=== PATIENT | female | born 1975 | race African-American/Black ===

== ENCOUNTER → 2019-08-10 15:46 | Outpatient (CLI) | payer BC, SELFPAY ==
[2019-08-10 17:09] LABS: Absolute Lymphocyte Count 1.94 X10^3/uL (0.83-4.51); Absolute Neutrophil Count 4.1 X10^3/uL (2.0-7.7); Basophil# 0.06 X10^3/uL; Basophil% 0.9 % (0-1); Eosinophil# 0.14 X10^3/uL; Hematocrit 25.7 % (37-47); Hemoglobin 7.2 g/dL (12.0-15.0); Lymphocyte # 1.94 X10^3/ul (4.0); Lymphocyte % 27.7 % (19-41); Mean Corpuscular Volume 64.3 fL (81-99); Mean Platelet Vol. 9.4 fl (6.2-12.0); Monocyte# 0.72 X10^3/uL; Monocyte% 10.3 % (0-10); NRBC Flagged by Analyzer 0 % (0-5); Neutrophil # 4.12 X10^3/uL (2.7-7.7); Neutrophil % 58.8 % (47-70); Platelet Count 455 K/mm3 (150-450); RBC Distribution Width CV 18.4 % (11.6-14.6); RBC Distribution Width SD 42.3 fl (35.1-43.9)
[2019-08-10 17:31] LABS: ALB/GLOB Ratio 0.9 RATIO (0.9-2.4); AST(SGOT) 16 U/L (15-37); Alanine Aminotransfer ALT/SGPT 20 U/L (13-56); Albumin, Serum 3.6 g/dL (3.2-5.0); Alkaline Phosphatase 81 U/L (45-117); Anion Gap 6 (5-15); BUN 7 mg/dL (7-18); BUN/Creat Ratio 7.8 RATIO (10-20); Calcium,Total 8.8 mg/dL (8.5-10.1); Chloride 109 mmol/L (98-107); EST Glomerular Filtration Rate 73 mL/min (>60); Est Glom Filt Rate - Afr Amer 89 mL/min (>60); Ferritin 3 ng/mL (8-252); Globulin 3.9 g/dL (2.2-4.2); Glucose 92 mg/dL (74-106); Potassium 3.7 mmol/L (3.5-5.1); Protein, Total 7.5 g/dL (6.4-8.2); Sodium Level 140 mmol/L (136-145); Thyroid Stim Hormone (TSH) 0.85 uIU/mL (0.358-3.74)
== END ==
PROVIDERS: PCP Family Medicine; Visit Provider Family Medicine
DX: R53.83 Other fatigue (principal)
CPT/HCPCS: 36415; 80053; 82728; 84443; 85025

== ENCOUNTER → 2019-09-09 15:21 | Outpatient (CLI) | payer BC, SELFPAY ==
[2019-09-09 17:22] LABS: Absolute Lymphocyte Count 1.94 X10^3/uL (0.83-4.51); Absolute Neutrophil Count 3.9 X10^3/uL (2.0-7.7); Basophil# 0.06 X10^3/uL; Basophil% 0.9 % (0-1); Eosinophil# 0.13 X10^3/uL; Hematocrit 32.9 % (37-47); Hemoglobin 9.5 g/dL (12.0-15.0); Lymphocyte # 1.94 X10^3/ul (4.0); Lymphocyte % 29.4 % (19-41); Mean Corp Hgb Conc 28.9 g/dL (32-36); Mean Corpuscular Hgb 21.3 pg (27.0-32.0); Mean Corpuscular Volume 73.6 fL (81-99); Mean Platelet Vol. 9.9 fl (6.2-12.0); Monocyte% 9.1 % (0-10); NRBC Flagged by Analyzer 0 % (0-5); Neutrophil # 3.85 X10^3/uL (2.7-7.7); Neutrophil % 58.3 % (47-70); POSITIVE MORPHOLOGY YES; Platelet Count 496 K/mm3 (150-450); Red Blood Count 4.47 M/mm3 (4.2-5.4); White Blood Count 6.6 K/mm3 (4.4-11.0)
[2019-09-09 17:51] LABS: Ferritin 50 ng/mL (8-252)
[2019-09-09 18:41] LABS: Differential Indicated SCAN CRITERIA MET
[2019-09-09 19:29] LABS: Acanthocytes RARE; Anisocytosis 2+; Hypochromasia 2+; Ovalocyte 1+; Platelet Estimate SLT INC (ADEQ); Target Cells RARE
[2019-09-13 09:48] LABS: Pathologist Review Reviewed
== END ==
PROVIDERS: PCP Family Medicine; Referring Provider Family Medicine; Visit Provider Family Medicine
DX: D50.9 Iron deficiency anemia, unspecified (principal)
CPT/HCPCS: 36415; 82728; 85025

== ENCOUNTER → 2019-12-21 13:44 | Outpatient (CLI) | payer BC, SELFPAY ==
[2019-12-21 13:12] VITALS: BMI 27.1
[2019-12-21 14:14] LABS: Absolute Neutrophil Count 4.8 X10^3/uL (2.0-7.7); Basophil# 0.08 X10^3/uL; Basophil% 1.1 % (0-1); Eosinophil# 0.18 X10^3/uL; Eosinophils% 2.5 % (0-5); Hematocrit 26.3 % (37-47); Hemoglobin 7.7 g/dL (12.0-15.0); Lymphocyte % 19.3 % (19-41); Mean Corp Hgb Conc 29.3 g/dL (32-36); Mean Corpuscular Hgb 20.8 pg (27.0-32.0); Mean Corpuscular Volume 70.9 fL (81-99); Mean Platelet Vol. 9.3 fl (6.2-12.0); Monocyte# 0.73 X10^3/uL; Monocyte% 10.1 % (0-10); NRBC Flagged by Analyzer 0 % (0-5); Neutrophil # 4.84 X10^3/uL (2.7-7.7); Neutrophil % 66.7 % (47-70); Platelet Count 427 K/mm3 (150-450); RBC Distribution Width CV 17.3 % (11.6-14.6); RBC Distribution Width SD 44.2 fl (35.1-43.9); Red Blood Count 3.71 M/mm3 (4.2-5.4); White Blood Count 7.3 K/mm3 (4.4-11.0)
[2019-12-28 05:10] LABS: HPV APTIMA, High Risk Negative (Negative)
== END ==
LOC: PAVLAB 13:45
PROVIDERS: PCP Family Medicine; Referring Provider Nurse Practitioner Women's Health; Visit Provider Nurse Practitioner Women's Health
DX: Z12.4 Encounter for screening for malignant neoplasm of cervix (principal); N92.0 Excessive and frequent menstruation with regular cycle
CPT/HCPCS: 36415; 85025; 87624; 88175; G0145

== ENCOUNTER → 2020-01-05 12:50 | Outpatient (CLI) | payer BC, SELFPAY ==
[2019-12-21 13:12] VITALS: BMI 27.1
[2020-01-05 13:15] VITALS: BP 139/93; PULSE 91; RESP 14; TEMP 36.8; O2SAT 98; BMI 26.6
[2020-01-05] MEDS: 0.9% NaCl IVPB Med Flush (250 mL) 15 ML IV (13:20)
[2020-01-05 15:05] VITALS: BP 123/77; PULSE 76
--- NOTE | 2020-01-05 15:48 | US_ITS ---
STUDY: ULTRASOUND OF THE FEMALE PELVIS - COMPLETE REASON FOR EXAM: Female, 44 years old. VERY HEAVY MENSES LMP: November 13, 2019 TECHNIQUE: Endovaginal /transabdominal TECHNICAL QUALITY: Adequate. COMPARISON: None. FINDINGS: The uterus is anteverted and is in a midline position. The uterus measures 13.9 x 10.0 x 7.8 cm. Nabothian cyst at the uterine cervix. The endometrium measures 14 mm in thickness, and is hyperechoic. There is no demonstrated endometrial mass. There is a heterogeneous 6.9 x 6.8 x 6.3 cm mass likely a fibroid. The patient does not have an I.U.D. The right ovary is visualized. The right ovary measures 3.3 x 2.0 x 1.9 cm. There is no right ovarian cyst or ovarian mass. There is no visualized right adnexal mass or complex lesion. There is normal arterial and normal venous vascularity. The left ovary is visualized. The left ovary measures 2.0 x 1.9 x 1.3 cm. There is no left ovarian cyst or ovarian mass. There is no visualized left adnexal mass or complex lesion. There is normal arterial and normal venous vascularity. There is no fluid in the cul-de-sac. The bladder has a volume of 250cc. US/Pelvic (Non ) IMPRESSION: Prominent uterine fibroid. Slightly thickened endometrium. Electronically Signed: Dhaval Izquierdo DO at 15:46 EDT Tel [phone], Service support ,
--- NOTE | 2020-01-05 15:48 | US_ITS ---
STUDY: ULTRASOUND OF THE FEMALE PELVIS - COMPLETE REASON FOR EXAM: Female, 44 years old. VERY HEAVY MENSES LMP: November 13, 2019 TECHNIQUE: Endovaginal /transabdominal TECHNICAL QUALITY: Adequate. COMPARISON: None. FINDINGS: The uterus is anteverted and is in a midline position. The uterus measures 13.9 x 10.0 x 7.8 cm. Nabothian cyst at the uterine cervix. The endometrium measures 14 mm in thickness, and is hyperechoic. There is no demonstrated endometrial mass. There is a heterogeneous 6.9 x 6.8 x 6.3 cm mass likely a fibroid. The patient does not have an I.U.D. The right ovary is visualized. The right ovary measures 3.3 x 2.0 x 1.9 cm. There is no right ovarian cyst or ovarian mass. There is no visualized right adnexal mass or complex lesion. There is normal arterial and normal venous vascularity. The left ovary is visualized. The left ovary measures 2.0 x 1.9 x 1.3 cm. There is no left ovarian cyst or ovarian mass. There is no visualized left adnexal mass or complex lesion. There is normal arterial and normal venous vascularity. There is no fluid in the cul-de-sac. The bladder has a volume of 250cc. US/Transvaginal Non- IMPRESSION: Prominent uterine fibroid. Slightly thickened endometrium. Electronically Signed: Dhaval Izquierdo DO at 15:46 EDT Tel [phone], Service support ,
--- NOTE | 2020-01-05 17:11 | BI_ITS ---
MAMMOGRAPHY - BILATERAL SCREENING 3-D TOMOSYNTHESIS REASON FOR EXAM: Female, 44 years old. Routine screening PERTINENT HISTORY: BILAT SCREENING - NO FAM HX - NO PREV SURG''S - PREV [facility] - PT HAS GAINED 30# SINCE LAST MAMM OF 2016. TECHNIQUE: 2-D mammograms and 3-D Tomosynthesis of the breast (s) were performed. CAD was performed. COMPARISON: No comparison mammograms available at this time. If any prior films become available, an addendum to this report can be generated. FINDINGS: The breast composition is heterogeneously dense that can obscure small breast masses. There are new subtle asymmetries present in both breasts that have changed since the previous study. In the left breast, there is a triangular shaped area with spiculations in the medial third best seen on image 11/15 of series 1, and in the right breast there is a central asymmetry best seen on the MLO view image 8/16 series 1. Further evaluation of both of these asymmetries with spot compression views and ultrasound is recommended. BI/SCREEN MAMM (CAD) W/DANIEL BILAT IMPRESSION: Subtle new asymmetries in both breasts as described. Further evaluation with spot compression views and ultrasound recommended ASSESSMENT CATEGORY: BIRADS Category 0: Incomplete. Need additional imaging evaluation as above. A letter regarding these results will be sent to the patient by the facility within 30 days. FOLLOW UP RECOMMENDATION: Additional imaging recommended as above. (E) Approximately 10% of breast cancers are not detected by mammography. A normal mammogram should not delay biopsy of a clinically suspicious abnormality. Electronically Signed: Iftikhar Tavarez MD at 7:57 EDT , Service support ,
== END ==
LOC: US 12:51 → MEDOUTP 12:52
PROVIDERS: PCP Family Medicine; Referring Provider Nurse Practitioner Women's Health; Visit Provider Nurse Practitioner Women's Health
DX: Z12.31 Encounter for screening mammogram for malignant neoplasm of breast (principal); D50.9 Iron deficiency anemia, unspecified; N92.0 Excessive and frequent menstruation with regular cycle
CPT/HCPCS: 96365; 96366; 76830; 76856; 77063; 77067; J1756; J7050

== ENCOUNTER → 2020-01-09 09:15 | Outpatient (CLI) | payer BC, SELFPAY ==
[2020-01-05 13:15] VITALS: BMI 26.6
--- NOTE | 2020-01-09 09:20 | BI_ITS ---
MAMMOGRAPHY - BILATERAL DIAGNOSTIC REASON FOR EXAM: Female, 44 years old. Abnormal screening mammogram. Subtle bilateral breast asymmetries. PERTINENT HISTORY: Non-contributory. TECHNIQUE: Compression spot views of both breasts were obtained. CAD: Full Field Digital Mammography with Computer Added Detection was performed. COMPARISON: Comparison is made with prior mammogram dated January 05, 2020. FINDINGS: Breast Composition: The breasts are heterogeneously dense, which may obscure small masses. There are no dominant masses or suspicious calcifications. No other significant abnormalities are identified. BI/DIAG MAMM W/CAD, BILAT IMPRESSION: No mammographic abnormality is seen at this time. Correlation with ultrasound of the left breast is recommended for further evaluation. ASSESSMENT CATEGORY: BIRADS Category 0: Incomplete. Need additional imaging evaluation. A letter regarding these results will be sent to the patient by the facility within 30 days. Approximately 10% of breast cancers are not detected by mammography. A normal mammogram should not delay biopsy of a clinically suspicious abnormality. Electronically Signed: Gabe Mendez, at 12:39 EDT , Service support ,
--- NOTE | 2020-01-09 09:20 | US_ITS ---
STUDY: ULTRASOUND BREAST - LEFT REASON FOR EXAM: Female, 44 years old. Abnormal screening mammogram. TECHNIQUE: Axial and longitudinal images of the LEFT breast were performed with a high resolution ultrasound transducer. # OF IMAGES: 21 COMPARISON: Comparison is made with prior mammogram done earlier in the day. FINDINGS: LEFT Breast: The central portion of the left breast was examined by ultrasound. Mildly dilated ducts. No solid or cystic mass is seen. US/Breast Limited Unilateral IMPRESSION: Mildly dilated central ducts. ASSESSMENT CATEGORY: BIRADS Category 2: Benign. A letter regarding these results will be sent to the patient by the facility within 30 days. Electronically Signed: Gabe Mendez, at 12:40 EDT , Service support ,
== END ==
PROVIDERS: PCP Family Medicine; Referring Provider Nurse Practitioner Women's Health; Visit Provider Nurse Practitioner Women's Health
DX: N64.89 Other specified disorders of breast (principal)
CPT/HCPCS: 76642; 77062; 77066; G0279

== ENCOUNTER → 2020-01-11 12:48 | Outpatient (CLI) | payer BC, SELFPAY ==
[2019-12-21 13:12] VITALS: BMI 27.1
[2020-01-05 13:15] VITALS: BMI 26.6
[2020-01-11] MEDS: 0.9% NaCl Peripheral Flush Adult/Peds IV (13:15)
[2020-01-11] MEDS: 0.9% NaCl IVPB Med Flush (250 mL) 15 ML IV (13:16)
[2020-01-11 14:05] VITALS: BP 137/77; PULSE 80; RESP 16; TEMP 36.6; O2SAT 99; BMI 25.7
[2020-01-11 15:16] VITALS: BP 110/60
== END ==
LOC: MEDOUTP 12:49
PROVIDERS: PCP Family Medicine; Referring Provider Nurse Practitioner Women's Health; Visit Provider Nurse Practitioner Women's Health
DX: D50.9 Iron deficiency anemia, unspecified (principal)
CPT/HCPCS: 96365; 96366; J1756; J7050; A4216

== ENCOUNTER → 2020-01-18 12:56 | Outpatient (CLI) | payer BC, SELFPAY ==
[2019-12-21 13:12] VITALS: BMI 27.1
[2020-01-11 14:05] VITALS: BMI 25.7
[2020-01-18 13:15] VITALS: BP 135/77; PULSE 78; RESP 16; TEMP 36.4; O2SAT 97; BMI 25.7
[2020-01-18] MEDS: 0.9% NaCl Peripheral Flush Adult/Peds IV (13:32)
[2020-01-18] MEDS: 0.9% NaCl IVPB Med Flush (250 mL) 15 ML IV (13:32)
== END ==
PROVIDERS: PCP Family Medicine; Referring Provider Nurse Practitioner Women's Health; Visit Provider Nurse Practitioner Women's Health
DX: D50.9 Iron deficiency anemia, unspecified (principal)
CPT/HCPCS: 96365; 96366; J1756; J7050; A4216

== ENCOUNTER → 2020-02-16 11:19 | Outpatient (CLI) | payer BC, SELFPAY ==
[2020-02-16 10:43] VITALS: BMI 25.7
[2020-02-16 11:49] LABS: Absolute Lymphocyte Count 1.71 X10^3/uL (0.83-4.51); Absolute Neutrophil Count 4.1 X10^3/uL (2.0-7.7); Basophil# 0.06 X10^3/uL; Basophil% 0.9 % (0-1); Eosinophil# 0.22 X10^3/uL; Eosinophils% 3.3 % (0-5); Hematocrit 32.8 % (37-47); Hemoglobin 10.1 g/dL (12.0-15.0); Lymphocyte # 1.71 X10^3/ul (4.0); Lymphocyte % 25.4 % (19-41); Mean Corp Hgb Conc 30.8 g/dL (32-36); Mean Corpuscular Hgb 24.3 pg (27.0-32.0); Mean Platelet Vol. 9.7 fl (6.2-12.0); Monocyte# 0.64 X10^3/uL; Monocyte% 9.5 % (0-10); NRBC Flagged by Analyzer 0 % (0-5); Neutrophil # 4.07 X10^3/uL (2.7-7.7); Neutrophil % 60.6 % (47-70); POSITIVE MORPHOLOGY YES; Red Blood Count 4.15 M/mm3 (4.2-5.4); White Blood Count 6.7 K/mm3 (4.4-11.0)
[2020-02-16 12:17] LABS: Differential Indicated SCAN CRITERIA MET
[2020-02-16 12:18] LABS: Anisocytosis 1+; Microcytosis 1+; Platelet Estimate ADEQUATE (ADEQ); Poikilocytosis 1+; Rouleaux 1+; Schistocytes 1+
== END ==
PROVIDERS: PCP Family Medicine; Referring Provider Nurse Practitioner Women's Health; Visit Provider Nurse Practitioner Women's Health
DX: N92.0 Excessive and frequent menstruation with regular cycle (principal); D50.9 Iron deficiency anemia, unspecified
CPT/HCPCS: 36415; 85025

== ENCOUNTER 2020-03-06 05:27 | Day surgery (SDC) | payer BC, SELFPAY ==
[2020-02-16 10:43] VITALS: BMI 25.7
[2020-02-22 15:24] VITALS: BMI 25.7
--- NOTE | 2020-02-28 15:51 | EKG12_ITS ---
Test Reason : PRE-OP Blood Pressure : / mmHG Vent. Rate : 071 BPM Atrial Rate : 071 BPM P-R Int : 116 ms QRS Dur : 070 ms QT Int : 392 ms P-R-T Axes : 065 014 034 degrees QTc Int : 425 ms Normal sinus rhythm Normal ECG Confirmed by ADONIS RIVAS ([id number]), news assignment editor ALFREDA CAZARES ([id number]) on 03/05/2020 9:48:06 AM Referred By: Adwoa John Confirmed By:ADONIS RIVAS
[2020-02-28 16:19] LABS: Hematocrit 32.2 % (37-47); Hemoglobin 9.9 g/dL (12.0-15.0); Mean Corp Hgb Conc 30.7 g/dL (32-36); Mean Corpuscular Hgb 23.7 pg (27.0-32.0); Mean Corpuscular Volume 77.2 fL (81-99); Mean Platelet Vol. 9.2 fl (6.2-12.0); POSITIVE MORPHOLOGY YES; Platelet Count 429 K/mm3 (150-450); RBC Distribution Width CV 25.8 % (11.6-14.6); Red Blood Count 4.17 M/mm3 (4.2-5.4); White Blood Count 7.7 K/mm3 (4.4-11.0)
[2020-02-28 16:20] LABS: Scan Indicated on CBC? Y/N YES- FLAGS NOTED
[2020-02-28 17:14] LABS: Magnesium 2.2 mg/dL (1.6-2.6)
[2020-03-06] VITALS (15 sets, daily range): BP systolic 117–144; BP diastolic 70–96; PULSE 70–92; RESP 12–16; TEMP 36.3–37.3; O2SAT 97–100; BMI 26.6
--- NOTE | 2020-03-06 05:05 | HP.PCM_ITS ---
- Problem List (1) Abnormal uterine bleeding due to intramural leiomyoma Status: Acute Comment: discussed medical, radiological, or surgical management. 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 Adwoa John MD) Smoking Status: Current every day smoker alcohol intake: current details: occasionally substance use type: does not use caffeine: Yes what type of physical activity do you participate in: walking frequency: 3-4 times per week seatbelt use: always do you feel safe at home: Yes additional social history: Engaged HPI Surgery consult: Details: BRIAN CRAIG is a 44 year old who presents for consult for AUB. she has severely heavy menses with anemia. she co pelvic pain during menses. she dneies pelvic pain outside of menses. she feels fatigue and has been on iron- IV venofer. US- The uterus measures 13.9 x 10.0 x 7.8 cm. Nabothian cyst at the uterine cervix. The endometrium measures 14 mm in thickness, and is hyperechoic. There is no demonstrated endometrial mass. There is a heterogeneous 6.9 x 6.8 x 6.3 cm fibroid at the top of the uterus. Female Reproductive History Cycle Length: 21-35 Bleeding Duration: 5 Questions: Metorrhagia: No, Sexually active: Yes, Dyspareunia: Yes, PCB: No Pregancy History 4 Elective abortions Hx Para 4 Spontaneous abortions Hx # Term Pregnancies Ectopic pregnancies Hx # Pregnancies Multiple births # of living children 3 ROS Const Constitutional: Reports system reviewed and no additional complaints, except as docu Eyes Eyes: Reports system reviewed and no additional complaints, except as docu Cardio Card: Denies chest pain Resp Resp: Denies cough or dyspnea GI GI: Denies abdominal pain or change in bowel habits : Reports as per HPI; denies nipple discharge Skin Skin/Breast: Denies change in hair, breast lump, breast pain, breast skin changes or nipple discharge Exam Const General: no acute distress Nutritional Appearance: well nourished Orientation: oriented x3 HENMT Head: normal to inspection, normocephalic Neck Neck: normal visual inspection, trachea midline Thyroid: thyroid normal Resp Effort & Inspection: normal respiratory effort GI Inspection: normal to inspection, non-distended Palpation: soft, mass (14 week size uterus) General: bladder normal to palpation External Female Exam: normal external appearance, normal appearance of the urethra Urethra: normal appearance of the urethra Speculum Exam - Vagina: normal appearance of the vagina, normal vaginal discharge, no lesions, nontender Speculum Exam - Cervix: closed cervix (stenotic; displaced to far left. ) Bimanual Exam- Vagina & Uterus: bladder normal to palpation, uterus enlarged (14 week size), uterus nodular Bimanual Exam- Adnexa, other: normal adnexae, no adnexal masses, pelvic support normal, adnexae non-tender Pelvic Support: normal Other: Cervix stabilized with tenaculum after cleansing with betadine solution Attempt to dilate cervix with small wire dilator and pipelle and not able to proceed. EMB deferred Skin General: no rashes or lesions noted Assessment & Plan Problems 1. Iron (Fe) deficiency anemia D50.9 IV venofer infusions given, Hg 10.1 on 02/15 2. Enlarged uterus N85.2 14 cm with 7 cm fibroid 3. Abnormal uterine bleeding due to intramural leiomyoma N93.9; D25.1 discussed medical, radiological, or surgical management. plan LAVH BS cysto possible MIKE with GP to assist Plan After discussing the patient's diagnosis and treatment plan options, patient wishes to proceed with surgical management. I have discussed with the patient the risks, benefits, and alternatives of the procedure which include but are not limited to risks of anesthesia, bleeding, infection, possible damage to bowel, bladder, or surrounding vasculature which could lead to additional surgery to evaluate any complications. Patient agrees to procedure and wishes to proceed. ACOG/uptodate references given for additional information regarding procedure. Coding Level of Care Code Off vis,est,level 5 Diagnoses Iron (Fe) deficiency anemia D50.9 Enlarged uterus N85.2 Abnormal uterine bleeding due to intramural leiomyoma N93.9; D25.1 UPDATE- I have seen the patient and performed any clinically relevant updates to the history and physical exam. Adwoa John MD
[2020-03-06] MEDS: Lactated Ringers 1,000 ML 40 ML IV (06:16)
[2020-03-06 06:17] LABS: Internal QC Validated? YES +Cl - CLEAR BKGD; Pregnancy, Urine Negative Negative
[2020-03-06] MEDS: Celecoxib 200 MG Capsule 400 MG PO (06:17)
[2020-03-06] MEDS: Acetaminophen 500 MG Tablet 1000 MG PO ×4 (06:18→23:31)
[2020-03-06] MEDS: Gabapentin 600 MG Tablet PO (06:18)
[2020-03-06] MEDS: Phenazopyridine 95 MG Tablet 190 MG PO (06:18)
[2020-03-06] MEDS: Scopolamine 1mg/72hr Patch 1 PATCH TRANSDERM. (06:19)
[2020-03-06] MEDS: dexAMETHasone 10 MG/ML Vial 8 MG IV (06:20)
[2020-03-06] MEDS: Enoxaparin 40 MG/0.4 ML Syringe SC (06:20)
[2020-03-06 07:23] LABS: International Normalized Ratio 1.1; Prothrombin Time (Protime)PT. 13.3 SECONDS (11.7-14.9)
[2020-03-06 07:24] LABS: Partial Thromboplast Time 28.1 Seconds (24.1-36.2)
[2020-03-06] MEDS: Cefazolin 2 GM in 0.9% Normal Saline 100 ML IV (07:29)
--- NOTE | 2020-03-06 08:10 | HYST_PTH ---
PATIENT: BRIAN CRAIG LOC: [facility] [place] U#:[id number] AGE/SX: 44/F ROOM: RE03/06/[address]: Dr. Adwoa John MD : 1975 BED: DIS: 03/07/2020 SPEC #: [id number] RECD: 03/06/20 10:57 STATUS: RAPHAEL GREGORIO #: [id number] FINA: 03/06/20 08:[address]: Adwoa John DEPT: SURGICAL PATHOLOGY RECD BY: Vitor Orourke ENTERED: 03/06/20 11:41 SP TYPE: HYSTERECT OTHR DR: Dr. Vannessa Miles MD Tissues: Uterus, NOS Procedures: Surgery Specimen Level V HEADER OPERATION: ERAS, laparoscopic-assisted vaginal hysterectomy PRE-OP DIAGNOSIS: Enlarged uterus, abnormal uterine bleeding due to intramural leiomyoma TISSUE SUBMITTED: Uterus, cervix and bilateral fallopian tubes MICROSCOPIC DIAGNOSIS Uterus, cervix and bilateral fallopian tubes, vaginal hysterectomy and bilateral salpingectomy: Cervix - Mild chronic inflammation. Endometrium - weakly secretory endometrium with focal changes consistent with exogenous hormone effects. Myometrium - intramural leiomyomas (largest measuring 8 cm in greatest dimension). - Focal adenomyosis. Bilateral fallopian tubes - no pathologic diagnosis. Bilateral paratubal cyst. SJ:rg 03/07/20 MICROSCOPIC DESCRIPTION Slides are reviewed. GROSS DESCRIPTION Received in fixative is one container labeled with the patient's name and designated uterus, cervix, bilateral fallopian tubes. The specimen consists of a hysterectomy specimen in multiple pieces consisting of pieces of uterus, cervix and detached pieces of bilateral fallopian tubes. The uterus with cervix in multiple pieces weighs 490 gm. A portion of the cervix and lower uterine segment measures 6.5 x 3 x 3 cm. The ectocervical mucosa is unremarkable. The external os is oval in contour. The endocervical canal measures 3 cm in length. The endocervical mucosa is unremarkable. A portion of the lower uterine segment is also present in this piece which measures 2 cm in length. Sections of the cervix reveal unremarkable cut surfaces. The body of the uterus in multiple pieces measure in aggregate 17 x 14 x 7 cm. The largest piece of uterus measures 10 cm in greatest dimeson. The serosal surface is focally congested. A portion of the endometrial cavity is present in this piece and measures 4 cm in length and 3 cm in width. The endometrium is morales, glistening and measures 0.1 cm in thickness. Sections of the largest piece of uterus reveal multiple nodular masses. The largest mass measures 8 cm in greatest dimension. Sections of the smaller pieces of uterus also reveal multiple nodular masses. Sections of these masses reveal morales whorled cut surfaces without areas of hemorrhage, necrosis or cystic degeneration. The uninvolved uterine wall measures up to 3 cm in thickness. The fallopian tubes are present in multiple pieces. One of the fallopian tubes measure 3 cm in length and 0.5 cm in diameter. The fimbrial end is identified. Sections reveal unremarkable cut surfaces. A paratubal cyst is noted measuring 0.5 cm in greatest dimension. The second fallopian tube is received in multiple pieces and one of the pieces measure 2 cm in length and 0.5 cm in diameter. A paratubal cyst is also noted measuring 0.5 cm in greatest dimension. One smaller piece is noted with fimbrial end and measures 1 x 0.5 x 0.5 cm. Sample Maker Hand sections are submitted in 12 cassettes as follows: 1 & 2 - cervix, 3-6 - uterine wall including endometrium, 7 & 8 - largest nodular mass, 9 - second largest nodular mass, 10 - smaller nodular masses, 11 - one fallopian tube and paratubal cyst, 12 - second fallopian tube in multiple pieces and paratubal cyst. / CAROL ANN:carson 03/06/20 TC: 1 CPT: 97200
[2020-03-06] MEDS: Bupivacaine 0.25% 30 ML Vial (08:15)
[2020-03-06 09:10] LABS: Bedside Glucose 85 mg/dL (70-110)
[2020-03-06] MEDS: Vasopressin 20 UNITS/ML Vial (10:00)
--- NOTE | 2020-03-06 10:11 | OP.PCM_ITS ---
Problem List (1) Abnormal uterine bleeding due to intramural leiomyoma Status: Acute Comment: discussed medical, radiological, or surgical management. plan LAVH BS cysto possible MIKE with GP to assist (2) Enlarged uterus Status: Acute Comment: 14 cm with 7 cm fibroid (3) ASCUS of cervix with negative high risk HPV Status: Acute Comment: Pap in 2022 (4) Iron (Fe) deficiency anemia Status: Acute Comment: IV venofer infusions given, Hg 10.1 on 02/15 Report of Operation Date of Procedure: 03/06/20 Pre-Operative Diagnosis: AUB fibroids Post-Operative Diagnosis: same Surgery/Procedure Performed:: lavh bs cysto Description of Surgical Findings:: enlarged fibroid uterus varnishing unit tool setter: Sherita Anaya Type of Anesthesia:: General Special Medications: floseal Specimen's removed: uterus tubes Drains: sarmiento Estimated Blood Loss (mL): 200 Fluids Replaced: crystalloid Description of Procedure: Patient received preoperative antibiotics and SCDs were on preoperatively. Patient was taken back to the operating room and placed in the dorsal lithotomy position. General anesthesia was induced and patient was prepped and draped in normal sterile fashion. Uterine manipulator was placed inside the uterus and Sarmiento catheter placed in the bladder. The umbilicus was grasped with towel clamps and an intraumbilical incision was made after injecting with quarter percent Marcaine and a Veress needle entered into the abdomen confirmed to be intra-abdominal with a low opening pressure. Abdomen was insufflated with CO2 gas and the Veress needle removed and the 5 mm trocar was placed under direct visualization without complication. Right and left lower quadrants were transilluminated and injected with quarter percent Marcaine and 5 mm ports placed under direct visualization. Pelvis was well visualized see operative findings for additional information. Bilateral fallopian tubes were identified and transected with the LigaSure device across the mesosalpinx to the level of the utero-ovarian ligament which was also transected with the LigaSure device. The broad ligament was opened up by transecting the round ligament bilaterally and skeletonizing the uterine vessels bilaterally and creating a bladder flap using the LigaSure device. The uterine arteries were transected bilaterally with good visualization of the bladder and the ureters were seen to be inferior lateral to the operative area. Attention was then paid to the vaginal portion of the procedure and the cervix was grasped with Ana Rosa clamps and circumferentially injected with dilute vasopressin. A circumferential incision was made and the vaginal mucosa was mobilized off posteriorly and the cul-de-sac entered into sharply and a longneck speculum placed. The anterior cul-de-sac was then identified and entered into sharply. The uterosacral ligaments were clamped cut and suture ligated with 0 Monocryl bilaterally followed by the cardinal ligaments which were clamped cut and suture ligated bilaterally with 0 Monocryl. The uterus serially descended and was removed without difficulty with significant morcellation. Pelvic sidewall pedicles were checked and noted to have excellent hemostasis. The vaginal mucosa was reapproximated incorporating the posterior peritoneum. This was reapproximated using 0 Vicryl [id number] sutures. Excellent hemostasis was noted. The cystoscopy was then performed and bilateral ureteral strong spray was noted and the bladder was noted to have no abnormality or lesions seen. Sarmiento catheter was replaced and then attention paid to the abdominal portion of the procedure again. The pelvis and cul-de-sac was well visualized and no significant active bleeding noted but some raw areas were seen on the peritoneum and therefore floseal was applied. Pressure was taken down and the areas visualized and noted of excellent hemostasis. All ports were removed under direct visualization without complication and the abdomen was desufflated of air. The instruments removed from the abdomen and the vagina vaginal sweep was negative. Port sites on the abdomen were closed with 4-0 Monocryl interrupted sutures and Steri's and windows were applied. She was awoken and taken recovery in stable condition. Grafts/Implants Used: none - Complications none - Admit VTE Documentation VTE Present on Admission: No VTE Mechan Device Prophylaxis: SCD's Multi Select Codes - Urinary/Genital Urinary/Genital CPT Codes: 07087 Cystoscopy, 92955 LAVH+BS/O >250gr Uterus
--- NOTE | 2020-03-06 10:17 | DCINST_ITS ---
Discharge Diet: No Restrictions Discharge Activity: Return to Normal Activity, May Not Drive, May Shower May resume sexual activity in: 6-8 weeks Call your doctor if your incision/area has: Continuous Slow Oozing, Sudden Increased Bleeding, Increased Pain/ Swelling, Increased Redness, Foul Smelling Discharge Call your doctor if you observe: Fever of 101 or Higher, Inability to urinate, Inability to have a bowel movement, Using more than one pad per hour Allergies/Adverse Reactions: Allergies No Known Allergies Allergy (Verified 03/06/20 05:38) Medications to take at Discharge Norethindrone Acetate 5 mg PO BID 02/27/20 Naproxen [Naprosyn] 250 - 500 mg PO Q8H PRN PRN #30 tab 03/06/20 Oxycodone HCl/Acetaminophen [Percocet 5-325] 1 - 2 tablet PO Q6H PRN PRN 7 Days #15 tablet 03/06/20 The following prescriptions were given: Naproxen [Naprosyn] 250 - 500 mg PO Q8H PRN PRN #30 tab PRN Reason: MILD PAIN Transmission Status: Sent to [facility] Oxycodone HCl/Acetaminophen [Percocet 5-325] 1 - 2 tablet PO Q6H PRN PRN 7 Days #15 tablet PRN Reason: Pain Transmission Status: Sent to [facility] Primary Care Physician: Vannessa Miles MD [Primary Care Provider] - Test Results: Test results from this visit will be discussed in further detail at your follow- up appointment, if applicable. Please Follow Up With: Adwoa John MD - [phone]
[2020-03-06] MEDS: Lactated Ringers 1,000 ML 70 ML IV ×3 (10:42→23:37)
[2020-03-06] MEDS: Ondansetron 4 MG/2 ML Vial IV (10:51)
[2020-03-06] MEDS: Ketorolac 30 MG/ML Syringe IV ×3 (13:34→23:31)
[2020-03-06] MEDS: Docusate Sodium 100 MG Capsule PO (20:51)
[2020-03-06] MEDS: 0.9% Saline Lock 10 ML Syringe IV (23:31)
[2020-03-07] MEDS: oxyCODONE 5 MG Tablet PO ×2 (03:29→12:02)
[2020-03-07 03:35] VITALS: BP 137/78; PULSE 73; RESP 16; TEMP 36.9; O2SAT 98
--- NOTE | 2020-03-07 04:42 | PN.OBGYN_ITS ---
Subjective: patient recovering well, denies CP, SOB, N, or V. patient is ambulating, voiding ,tolerating adequate po, and pain is controlled with oral medications. - Physical Exam Vitals/I&O's: Vital Signs Temp Pulse Resp BP Pulse Ox 98.4 F 73 16 137/78 H 98 03/07/20 03:35 03/07/20 03:35 03/07/20 03:35 03/07/20 03:35 03/07/20 03:35 Oxygen Flow Rate (L/min) 6 Oxygen Delivery Method Room Air Weight: 155 lb 3.287 oz Body Mass Index (BMI) 26.6 Intake and Output for Last 24 Hours 03/05/20 03/06/20 03/07/20 23:59 23:59 23:59 Intake Total 3486 / 3486 Output Total 1974 Balance 1511 / 1511 General: Alert, Oriented x3 Laboratory Results 03/06/20 05:50: Urine Test Negative 03/06/20 06:06: POC Glucose 85 03/06/20 06:50: PT 13.3, INR 1.1, APTT 28.1 Current Medications Acetaminophen (Tylenol) 1,000 mg PO Q6 [facility] Last Admin: 03/06/20 23:31 Dose: 1,000 mg Documented by: Docusate Sodium (Colace) 100 mg PO BID [facility] Last Admin: 03/06/20 20:51 Dose: 100 mg Documented by: Enoxaparin Sodium (Lovenox) 40 mg SC DAILY [facility] Lactated Ringer's () 1,000 mls @ 70 mls/hr IV .[id number] [facility] Stop: 03/07/20 10:56 Last Admin: 03/06/20 23:37 Dose: 70 mls/hr Documented by: Sodium Chloride () 250 mls @ 15 mls/hr IV .[id number] PRN PRN Reason: Saline Flush Ketorolac Tromethamine (Toradol (Bkc)) 30 mg IV Q6H [facility] Stop: 03/07/20 18:31 Last Admin: 03/06/20 23:31 Dose: 30 mg Documented by: Magnesium Oxide (Mag-Ox 400) 400 mg PO DAILY PRN PRN PRN Reason: Constipation Nutritional Formula (Lactose Free) (Ensure Enlive) 120 ml PO TIDCM [facility] Last Admin: 03/06/20 17:16 Dose: Not Given Documented by: Ondansetron HCl (Zofran Odt) 4 mg PO Q6H PRN PRN PRN Reason: NAUSEA Oxycodone HCl (Oxyir) 5 - 10 mg PO Q4H PRN PRN PRN Reason: Pain Score 4-10/10 Last Admin: 03/07/20 03:29 Dose: 5 mg Documented by: Sodium Chloride () 10 - 40 ml IV UD PRN PRN Reason: SALINE FLUSH Last Admin: 03/06/20 23:31 Dose: 10 ml Documented by: Medical Necessity - Tobacco Use Smoking Status: Former smoker Tobacco Use: Non-smoker Assessment/Plan All Active Problems (Last Reviewed 02/16/20 @ 10:43 by Glenda James) Abnormal uterine bleeding due to intramural leiomyoma (Acute) Enlarged uterus (Acute) ASCUS of cervix with negative high risk HPV (Acute) Iron (Fe) deficiency anemia (Acute) patient is s/p lavh bs POD 1 1. routine ERAS protocol postop care- increase ambulation, encourage oral intake and oral control of pain. lovenox and scds for dvt prophylaxis, patient stable for discharge to home.
[2020-03-07] MEDS: Ketorolac 30 MG/ML Syringe IV (05:26)
[2020-03-07] MEDS: 0.9% Saline Lock 10 ML Syringe IV (05:26)
[2020-03-07] MEDS: Acetaminophen 500 MG Tablet 1000 MG PO (06:21)
[2020-03-07 07:08] VITALS: O2SAT 97
[2020-03-07 07:42] LABS: Hematocrit 29.5 % (37-47); Hemoglobin 9.1 g/dL (12.0-15.0); Mean Corp Hgb Conc 30.8 g/dL (32-36); Mean Corpuscular Hgb 24.1 pg (27.0-32.0); Mean Platelet Vol. 9.7 fl (6.2-12.0); POSITIVE MORPHOLOGY YES; Platelet Count 362 K/mm3 (150-450); RBC Distribution Width CV 24.7 % (11.6-14.6); RBC Distribution Width SD 67.7 fl (35.1-43.9); Red Blood Count 3.78 M/mm3 (4.2-5.4); White Blood Count 10.4 K/mm3 (4.4-11.0)
[2020-03-07 07:52] LABS: Scan Indicated on CBC? Y/N YES- FLAGS NOTED
[2020-03-07 08:17] LABS: Differential Comment SCANNED
[2020-03-07 09:02] VITALS: BP 119/77; PULSE 72; RESP 18; TEMP 37.1; O2SAT 95
[2020-03-07] MEDS: Enoxaparin 40 MG/0.4 ML Syringe SC (09:10)
[2020-03-07] MEDS: Docusate Sodium 100 MG Capsule PO (09:10)
[2020-03-07 14:36] VITALS: BP 121/79; PULSE 71; RESP 16; TEMP 36.9; O2SAT 97
== END 2020-03-07 14:40 | disposition home or self-care (01) ==
LOC: SDC 05:28 → AC 05:29 → MS3 03-07 14:01
PROVIDERS: Anesthesiology; PCP Family Medicine; Referring Provider Obstetrics & Gynecology; Visit Provider Obstetrics & Gynecology
PROC: 0UT9FZZ Resection of Uterus, Via Natural or Artificial Opening With Percutaneous Endoscopic Assistance (ICD-10-PCS; CPT 58554; principal; 2020-03-06 07:05)
DX: D25.1 Intramural leiomyoma of uterus (principal); Z11.59 Encounter for screening for other viral diseases; D50.9 Iron deficiency anemia, unspecified; N83.8 Other noninflammatory disorders of ovary, fallopian tube and broad ligament; R87.610 Atypical squamous cells of undetermined significance on cytologic smear of cervix (ASC-US); Z87.891 Personal history of nicotine dependence
CPT/HCPCS: 00940; 58554; 36415; 81025; 82962; 83735; 85027; 85610; 85730; 86850; 86900; 86901; 87635; 88307; 93005; 94799; 99251; J7120; A4216; G0463; J2405; U0003

== ENCOUNTER → 2020-11-03 10:06 | Outpatient (CLI) | payer OTHER, SELFPAY ==
[2020-04-25 12:43] VITALS: BMI 25.7
[2020-11-03 11:14] LABS: Color, Urine Yellow (Yellow); Glucose, Dipstick Normal (Normal); Ketone-Dipstick 5 mg/dl (Negative); Leukocyte Esterase-Dipstick Negative /ul (Negative); Nitrite-Dipstick Negative (Negative); Occult Blood-Urine Negative /ul (Negative); Protein-Dipstick 15 mg/dl (Negative); Specific Gravity, Urine 1.025 (1.002-1.030); Urine Bilirubin Dipstick Negative (Negative); Urine Clarity Sl. Cloudy (Clear); Urine Urobilinogen Normal (Normal)
[2020-11-03 11:51] LABS: ALB/GLOB Ratio 0.9 RATIO (0.9-2.4); AST(SGOT) 13 U/L (15-37); Alanine Aminotransfer ALT/SGPT 16 U/L (13-56); Albumin, Serum 3.5 g/dL (3.2-5.0); Alkaline Phosphatase 76 U/L (45-117); Anion Gap 6 (5-15); BUN 8 mg/dL (7-18); Calcium,Total 8.8 mg/dL (8.5-10.1); Chloride 108 mmol/L (98-107); Cholesterol 177 mg/dL (200); EST Glomerular Filtration Rate 64 mL/min (>60); Est Glom Filt Rate - Afr Amer 78 mL/min (>60); Globulin 3.7 g/dL (2.2-4.2); Glucose 86 mg/dL (74-106); High Density Lipoprotein 66 mg/dL; Potassium 3.6 mmol/L (3.5-5.1); Protein, Total 7.2 g/dL (6.4-8.2); Sodium Level 140 mmol/L (136-145); Thyroid Stim Hormone (TSH) 1.11 uIU/mL (0.358-3.74); Triglycerides 52 mg/dL; Very Low Density Lipoprotein 10 mg/dL (5-40)
== END ==
PROVIDERS: PCP Family Medicine; Referring Provider Family Medicine; Visit Provider Family Medicine
DX: I10 Essential (primary) hypertension (principal); D50.9 Iron deficiency anemia, unspecified
CPT/HCPCS: 36415; 80053; 80061; 81002; 84443

== ENCOUNTER 2021-05-13 20:56 | Emergency (ER) | payer OTHER, SELFPAY ==
[2021-05-13 20:57] VITALS: BP 156/132; PULSE 117; RESP 18; TEMP 35.8; O2SAT 100; BMI 25.8
[2021-05-13 22:16] VITALS: BP 154/113; PULSE 88; RESP 16; O2SAT 98
--- NOTE | 2021-05-13 22:24 | EDS_ITS ---
HPI History of Present Illness Chief Complaint: Hypertension Informant: patient Narrative Narrative: 46-year-old female presents to the emergency department with hypertension. Patient states that for the past 3 months she has been taking atenolol 37.5 mg/day. She states that on Thursday she was transition from atenolol to amlodipine 5 mg once a day. She states that her doctor wanted to add a second medication to the atenolol but she was hesitant to start a second medicine. She states that since the change occurred she has had a generalized headache. 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 She does not take her amlodipine. She states she left work concern for her hypertension. [facility] Medical History HTN (hypertension) Iron (Fe) deficiency anemia Home Medications amlodipine 5 mg PO DAILY 05/13/21 [History Last Taken Unknown] Allergy/AdvReac Type Severity Reaction Status Date / Time No Known Allergies Allergy Verified 05/13/21 22:10 Family History Mother Hypertension Myocardial infarction Grandmother Hypertension Heart disease Surgical History History of cystoscopy History of [facility] Hx of bilateral salpingectomy Social History Smoking Status: Former smoker alcohol intake: current details: occasionally substance use type: does not use caffeine: Yes what type of physical activity do you participate in: walking frequency: 3-4 times per week seatbelt use: always do you feel safe at home: Yes additional social history: Engaged ROS [facility] ED Constitutional Constitutional ED: Denies chills or weight loss Eyes Eyes: Denies change in vision or diplopia ENT ENT ED: Denies ear pain, rhinorrhea or sore throat Cardiovascular Cardiovascular: Denies chest pain, orthopnea, palpitations or racing heartbeat Respiratory/Chest Respiratory/Chest: Denies cough, dyspnea or orthopnea Gastrointestinal Gastrointestinal: Denies abdominal pain, diarrhea, nausea or vomiting Genitourinary Genitourinary ED: Denies dysuria, hematuria or urinary frequency Musculoskeletal Musculoskeletal: Denies arthralgias or myalgias Integumentary Denies abscess or rash Neurologic Neurologic: Reports headache(s); Denies weakness Psychiatric Psychiatric: Denies anxiety, depression, suicidal ideation or suicidal thoughts Endocrine Endocrinology: Denies polydipsia, polyphagia or polyuria Allergic/Immunologic Allergic/Immunologic ED: Denies mouth swelling, tongue swelling or urticaria EXAM Physical Exam Const Vital Signs: 05/13/21 20:57 05/13/21 22:12 05/13/21 22:16 Temperature 96.5 F L Temperature Source Temporal Pulse Rate 117 H 88 Respiratory Rate 18 16 Respiratory Effort Normal Respiratory Pattern Normal Blood Pressure 156/132 H 154/113 H Blood Pressure Mean 140 126 Pulse Ox 100 98 Oxygen Delivery Method Room Air Room Air Positive well nourished and well developed General Appearance ED: well developed HEENT Reports normocephalic, head/scalp atraumatic and moist mucous membranes Eyes PERRL and EOMs intact bilaterally Neck no lymphadenopathy, supple and no JVD Resp normal respiratory effort and clear to auscultation bilaterally Cardio regular rate, regular rhythm and no murmurs GI normal to inspection, nondistended, normoactive bowel sounds and non-tender Palpation: soft Back/Spine no CVA tenderness and normal ROM Extremity normal to inspection General Extremety ED: Negative for edema General Extremity: Negative for edema Neuro oriented x3 and CN's II-XII intact bilaterally Sensorium / Orientation: alert Motor Exam: strength 5/5 throughout Psych mental status grossly normal Mood & Affect: Negative for depressed or tearful Skin no rashes or lesions noted and no wounds MDM MDM MDM Narrative Medical decision making narrative: Patient will be given 10 mg of amlodipine. She is to call her doctor's office in the morning. She states that she is open to a second medication if need be. Discharge Plan Triage Chief Complaint: Hypertension ED Provider: Rubén Guaman Dx/Rx/DC Orders Clinical Impression: Hypertension Instructions: ED High Blood Pressure Hypertension Prescriptions: No Action amlodipine 5 mg tablet 5 mg PO DAILY RF: 0 Primary Care Provider: Vannessa Miles Referrals: Vannessa Miles MD [Primary Care Provider] - As soon as possible (Please call the office in the morning) Disposition Disposition: Home, Self Care
[2021-05-13] MEDS: amLODIPine 10 MG Tablet PO (22:44)
[2021-05-13 22:45] VITALS: BP 145/114; PULSE 88; RESP 16; O2SAT 99
== END 2021-05-13 22:47 | disposition home or self-care (01) ==
LOC: ED 22:27
PROVIDERS: Emergency Provider Emergency Medicine; PCP Family Medicine
DX: I10 Essential (primary) hypertension (principal); Z79.899 Other long term (current) drug therapy; Z87.891 Personal history of nicotine dependence
CPT/HCPCS: 99283

== ENCOUNTER 2021-06-28 20:06 | Emergency (ER) | payer OTHER, SELFPAY ==
[2021-06-28 20:06] VITALS: BP 123/74; PULSE 92; RESP 18; TEMP 36.1; O2SAT 99; BMI 24.9
--- NOTE | 2021-06-28 20:29 | US_ITS ---
EXAM: US PELVIS TRANSVAGINAL CLINICAL INDICATION: left ovarian cyst TECHNIQUE: Transvaginal pelvic ultrasound was performed with grayscale and color Doppler imaging. Transvaginal imaging was used for better evaluation of the endometrium and adnexa. This report was created using [employer] report [employer] technology. COMPARISON: 01/05/2020. FINDINGS: UTERUS/CERVIX: Uterus is surgically absent. RIGHT OVARY: Right ovary is normal in size and echogenicity measuring 2 x 1.3 x 1.9 cm. Blood flow is present in the right ovary. LEFT OVARY: Left ovary measures 4.1 x 2.8 x 3.9 cm. Complex cystic lesion containing low level echoes measures 3.2 x 1.9 cm. No color flow. Blood flow is present in the left ovary. FREE FLUID: None. BLADDER: Empty bladder which cannot be evaluated with this probe. US/Transvaginal Non- IMPRESSION: Complex left ovarian lesion most consistent with hemorrhagic cyst. ACR White Paper guidelines (Briceno, et. al. Radiology 2010; 256(3):943-954) suggest no follow-up is necessary. Electronically Signed: Krystal Strange MD at 21:50 EST Tel , Service support ,
[2021-06-28] MEDS: HYDROcodone Bitartrate/Apap 5/325 Tablet PO (20:40)
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
[2021-06-28 23:00] VITALS: RESP 16
== END 2021-06-28 23:01 | disposition home or self-care (01) ==
PROVIDERS: Emergency Provider Emergency Medicine; PCP Family Medicine
DX: N83.202 Unspecified ovarian cyst, left side (principal); I10 Essential (primary) hypertension; Z87.891 Personal history of nicotine dependence; Z79.899 Other long term (current) drug therapy; V43.52XA Car driver injured in collision with other type car in traffic accident, initial encounter
CPT/HCPCS: 76830; 99282

== ENCOUNTER 2021-07-18 15:27 | Outpatient (CLI) | payer BC, SELFPAY ==
--- NOTE | 2021-07-18 15:31 | US_ITS ---
STUDY: ULTRASOUND OF THE FEMALE PELVIS - COMPLETE REASON FOR EXAM: Female, 46 years old. F/U OVARIAN CYSTS LMP: 06/28/2021 TECHNIQUE: Transabdominal and endovaginal TECHNICAL QUALITY: Adequate. COMPARISON: None. FINDINGS: Status post hysterectomy. The right ovary is visualized. The right ovary measures 2.9 x 2.4 x 1.5 cm. There is a 1.5 cm complex nodule, not seen on previous study. There is normal arterial and normal venous vascularity. The left ovary is visualized. The left ovary measures 2.7 x 2.3 x 1.7 cm. There is a 1.9 cm complex cystic nodule, smaller than on previous study. There is normal arterial and normal venous vascularity. There is mild to moderate fluid in the cul-de-sac. There is a questionable cystic structure or fluid filled loop of bowel noted. The pre void volume of the bladder was 219 ml. US/Pelvic (Non ) IMPRESSION: New right ovarian complex nodule. Smaller left ovarian complex nodule.. Mild to moderate pelvic fluid with a questionable loop of fluid-filled bowel or cystic structure noted. Correlate with CT or MRI if needed. Electronically Signed: Dhaval Izquierdo DO at 16:22 EST Tel [phone], Service support ,
== END 2021-07-18 23:59 | disposition short-term general hospital (02) ==
PROVIDERS: PCP Family Medicine; Referring Provider Nurse Practitioner Women's Health; Visit Provider Nurse Practitioner Women's Health
DX: N83.202 Unspecified ovarian cyst, left side (principal); N83.291 Other ovarian cyst, right side
CPT/HCPCS: 76856

== ENCOUNTER 2021-07-31 09:37 | Outpatient (CLI) | payer BC, SELFPAY | END 2021-07-31 23:59 | disposition short-term general hospital (02) | LOC: LABSPEC 09:38 | PROVIDERS: PCP Family Medicine; Referring Provider Physician Assistant; Visit Provider Physician Assistant | DX: Z11.52 Encounter for screening for COVID-19 (principal) | CPT/HCPCS: 87635; U0003; U0005 ==

== ENCOUNTER 2021-08-08 15:00 | Outpatient (CLI) | payer BC, SELFPAY ==
--- NOTE | 2021-08-08 15:03 | CT_ITS ---
STUDY: CT ABDOMEN AND PELVIS WITH CONTRAST REASON FOR EXAM: Female, 46 years old. Abnormal ultrasound RADIATION DOSAGE (If Supplied By Facility): CTDIvol = ( 21.01 ) mGy, DLP = ( 612.64 ) mGycm TECHNIQUE: Transaxial images were obtained from the dome of the diaphragm to the symphysis pubis without oral contrast. IV 100mL Isovue-370 was administered. Sagittal and coronal images were reconstructed. Individualized dose optimization techniques were used for this CT. COMPARISON: None. FINDINGS: The visualized lung bases are unremarkable. The visualized portions of the heart are within normal limits. Normal liver. Normal gallbladder and extrahepatic biliary system. Normal spleen. Normal pancreas. Normal bilateral adrenal glands. Normal right kidney. Normal left kidney. Normal visualized stomach. Normal small intestine. Normal colon. The appendix is visualized and appears normal. Normal abdominal aorta. Normal inferior vena cava. Normal retroperitoneum. Normal urinary bladder. There is a 4.4 cm by 2.9 cm septated cyst in the left ovary. Small amount of free fluid is seen in the left cul-de-sac. Normal abdominal wall. Normal osseous structures. CT/Abdomen/Pelvis W IV Cont ONLY IMPRESSION: 4.4 cm x 2.9 some are septated cyst in the left ovary with a small amount of left pelvic fluid. Electronically Signed: Gabe Mendez MD at 15:42 EST ,
[2021-08-08 15:21] LABS: CREATININE FINGERSTICK 1.1 mg/dL (0.55-1.02); EGFR FINGERSTICK > 60.0000 mL/min (>60)
== END 2021-08-08 23:59 | disposition short-term general hospital (02) ==
LOC: CT 15:01
PROVIDERS: PCP Family Medicine; Referring Provider Nurse Practitioner Women's Health; Visit Provider Nurse Practitioner Women's Health
DX: N83.202 Unspecified ovarian cyst, left side (principal); N93.9 Abnormal uterine and vaginal bleeding, unspecified; D25.1 Intramural leiomyoma of uterus
CPT/HCPCS: 74177; Q9967

== ENCOUNTER → 2022-01-14 | Outpatient (CLI) | payer BC, SELFPAY ==
--- NOTE | 2022-01-14 15:51 | US_ITS ---
STUDY: ULTRASOUND OF THE FEMALE PELVIS - COMPLETE REASON FOR EXAM: Female, 46 years old. pelvic pain TECHNIQUE: Endovaginal. Transvaginal US was obtained to better visualized the ovaries. COMPARISON: CT 08/08/2021 and ultrasound of 07/18/2021. FINDINGS: The uterus is surgically absent. The right ovary is visualized. The right ovary measures 3.2 x 3 cm. 27 x 26 mm septated cyst. No follow-up required. There is no visualized right adnexal mass or complex lesion. There is normal arterial and normal venous vascularity. The left ovary is visualized. The left ovary measures 2.8 x 1.7 cm. 18 mm cyst. No follow-up required. There is no visualized left adnexal mass or complex lesion. There is normal arterial and normal venous vascularity. There is a moderate amount of fluid in the cul-de-sac. Urinary bladder volume is 300 cc. US/Pelvic (Non ) IMPRESSION: There is a moderate amount of fluid in the cul-de-sac. Electronically Signed: Yovani Carvalho MD at 19:37 EDT ,
== END | disposition home or self-care (01) ==
LOC: US 15:50
PROVIDERS: PCP Family Medicine; Referring Provider Obstetrics & Gynecology; Visit Provider Obstetrics & Gynecology
DX: N83.202 Unspecified ovarian cyst, left side (principal); R10.2 Pelvic and perineal pain
CPT/HCPCS: 76856; 93976

== ENCOUNTER → 2022-02-14 | Outpatient (CLI) | payer BC, SELFPAY ==
[2022-02-14 09:30] LABS: Absolute Lymphocyte Count 1.45 X10^3/uL (0.83-4.51); Absolute Neutrophil Count 3.1 X10^3/uL (2.0-7.7); Basophil# 0.06 X10^3/uL; Basophil% 1.1 % (0-1); Eosinophil# 0.25 X10^3/uL; Eosinophils% 4.6 % (0-5); Hematocrit 43.6 % (37-47); Hemoglobin 14.7 g/dL (12.0-15.0); Lymphocyte # 1.45 X10^3/ul (0.83-4.51); Lymphocyte % 26.4 % (19-41); Mean Corp Hgb Conc 33.7 g/dL (32-36); Mean Platelet Vol. 9.9 fl (6.2-12.0); Monocyte# 0.59 X10^3/uL; Monocyte% 10.7 % (0-10); NRBC Flagged by Analyzer 0 % (0-5); Neutrophil # 3.12 X10^3/uL (2.7-7.7); Neutrophil % 56.8 % (47-70); Platelet Count 341 K/mm3 (150-450); RBC Distribution Width CV 12.5 % (11.6-14.6); RBC Distribution Width SD 42.1 fl (35.1-43.9); Red Blood Count 4.74 M/mm3 (4.2-5.4); White Blood Count 5.5 K/mm3 (4.4-11.0)
[2022-02-14 09:56] LABS: AST(SGOT) 11 U/L (15-37); Alanine Aminotransfer ALT/SGPT 19 U/L (13-56); Albumin, Serum 3.6 g/dL (3.2-5.0); Alkaline Phosphatase 57 U/L (45-117); Anion Gap 3 (5-15); BUN 12 mg/dL (7-18); BUN/Creat Ratio 11.8 RATIO (10-20); Calcium,Total 8.9 mg/dL (8.5-10.1); Chloride 107 mmol/L (98-107); Cholesterol 172 mg/dL (200); Creatinine, Serum 1.02 mg/dL (0.55-1.02); EST Glomerular Filtration Rate 62 mL/min (>60); Est Glom Filt Rate - Afr Amer 75 mL/min (>60); Globulin 3.7 g/dL (2.2-4.2); Glucose 85 mg/dL (74-106); High Density Lipoprotein 61 mg/dL; Potassium 4.2 mmol/L (3.5-5.1); Protein, Total 7.3 g/dL (6.4-8.2); Sodium Level 139 mmol/L (136-145); Triglycerides 48 mg/dL; Very Low Density Lipoprotein 10 mg/dL (5-40)
== END | disposition home or self-care (01) ==
LOC: LAB 08:05
PROVIDERS: PCP Family Medicine; Referring Provider Family Medicine; Visit Provider Family Medicine
DX: Z00.00 Encounter for general adult medical examination without abnormal findings (principal); I10 Essential (primary) hypertension; D50.9 Iron deficiency anemia, unspecified
CPT/HCPCS: 36415; 80053; 80061; 85025

== ENCOUNTER → 2022-04-09 | Outpatient (CLI) | payer BC, SELFPAY ==
--- NOTE | 2022-04-09 16:03 | BI_ITS ---
MAMMOGRAPHY - BILATERAL SCREENING REASON FOR EXAM: Female, 47 years old. Routine annual screening examination. PERTINENT HISTORY: Non-contributory. TECHNIQUE: Digital bilateral breast daniel (3D mammographic acquisition) in the CC and MLO projections. 2-D mediolateral oblique (MLO) and craniocaudad (CC) views of both breasts were obtained. CAD: Full Field Digital Mammography with Computer Added Detection was performed. COMPARISON: Comparison is made with prior study dated 01/05/2020 and 01/09/2020. FINDINGS: Breast Composition: The breasts are heterogeneously dense, which may obscure small masses. There are no dominant masses or suspicious calcifications. Stable benign-appearing bilateral axillary lymph nodes. No other significant abnormalities are identified. There has been no significant change since the prior study. BI/SCRN MAMM (CAD)W/DANIEL BILAT IMPRESSION: Stable bilateral screening mammogram. Yearly follow-up mammogram recommended. (A) ASSESSMENT CATEGORY: BIRADS Category 2: Benign. A letter regarding these results will be sent to the patient by the facility within 30 days. Approximately 10% of breast cancers are not detected by mammography. A normal mammogram should not delay biopsy of a clinically suspicious abnormality. [id number] Electronically Signed: Gabe Mendez MD at 8:16 EDT ,
== END | disposition home or self-care (01) ==
LOC: OPBI 16:01
PROVIDERS: PCP Family Medicine; Visit Provider Family Medicine
DX: Z12.31 Encounter for screening mammogram for malignant neoplasm of breast (principal)
CPT/HCPCS: 77063; 77067

== ENCOUNTER → 2023-05-15 | Outpatient (CLI) | payer BC, SELFPAY ==
[2023-05-15 17:45] LABS: Absolute Lymphocyte Count 2.24 X10^3/uL (0.83-4.51); Absolute Neutrophil Count 4.1 X10^3/uL (2.0-7.7); Basophil# 0.07 X10^3/uL; Basophil% 0.9 % (0-1); Eosinophil# 0.28 X10^3/uL; Eosinophils% 3.8 % (0-5); Hematocrit 43.3 % (37-47); Hemoglobin 14.7 g/dL (12.0-15.0); Lymphocyte # 2.24 X10^3/ul (0.83-4.51); Lymphocyte % 30.3 % (19-41); Mean Corp Hgb Conc 33.9 g/dL (32-36); Mean Corpuscular Hgb 30.8 pg (27.0-32.0); Mean Corpuscular Volume 90.8 fL (81-99); Mean Platelet Vol. 10.4 fl (6.2-12.0); Monocyte# 0.71 X10^3/uL; Monocyte% 9.6 % (0-10); NRBC Flagged by Analyzer 0 % (0-5); Neutrophil # 4.07 X10^3/uL (2.7-7.7); Platelet Count 312 K/mm3 (150-450); RBC Distribution Width CV 12.3 % (11.6-14.6); RBC Distribution Width SD 41.2 fl (35.1-43.9); Red Blood Count 4.77 M/mm3 (4.2-5.4); White Blood Count 7.4 K/mm3 (4.4-11.0)
[2023-05-15 18:49] LABS: ALB/GLOB Ratio 0.9 RATIO (0.9-2.4); AST(SGOT) 17 U/L (15-37); Alanine Aminotransfer ALT/SGPT 24 U/L (13-56); Albumin, Serum 3.7 g/dL (3.2-5.0); Alkaline Phosphatase 69 U/L (45-117); Anion Gap 8 (5-15); BUN 9 mg/dL (7-18); BUN/Creat Ratio 9.8 RATIO (10-20); Calcium,Total 9.1 mg/dL (8.5-10.1); Chloride 107 mmol/L (98-107); Creatinine, Serum 0.92 mg/dL (0.55-1.02); EST Glomerular Filtration Rate 70 mL/min (>60); Est Glom Filt Rate - Afr Amer 85 mL/min (>60); Follicle Stimulating Hormone 20.2 mIU/mL; Globulin 3.9 g/dL (2.2-4.2); Glucose 89 mg/dL (74-106); Potassium 3.8 mmol/L (3.5-5.1); Protein, Total 7.6 g/dL (6.4-8.2); Sodium Level 139 mmol/L (136-145); Thyroid Stim Hormone (TSH) 1.02 uIU/mL (0.358-3.74)
== END | disposition home or self-care (01) ==
LOC: BFHLAB 14:38
PROVIDERS: PCP Family Medicine; Visit Provider Family Medicine
DX: I10 Essential (primary) hypertension (principal); D50.9 Iron deficiency anemia, unspecified; R53.82 Chronic fatigue, unspecified; Z78.0 Asymptomatic menopausal state
CPT/HCPCS: 36415; 80053; 83001; 84443; 85025

== ENCOUNTER → 2023-06-02 | Outpatient (CLI) | payer BC, SELFPAY ==
--- NOTE | 2023-06-02 16:03 | BI_ITS ---
MAMMOGRAPHY - BILATERAL SCREENING REASON FOR EXAM: Female, 48 years old. Routine annual screening examination. PERTINENT HISTORY: Non-contributory. TECHNIQUE: Digital bilateral breast daniel (3D mammographic acquisition) in the CC and MLO projections. 2-D mediolateral oblique (MLO) and craniocaudad (CC) views of both breasts were obtained. CAD: Full Field Digital Mammography with Computer Added Detection was performed. COMPARISON: Comparison is made with prior study dated April 09, 2022 and January 09, 2020. FINDINGS: Breast Composition: The breasts are heterogeneously dense, which may obscure small masses. There are no dominant masses or suspicious calcifications. Stable small bilateral axillary lymph nodes. No other significant abnormalities are identified. There has been no significant change since the prior study. BI/SCRN MAMM (CAD)W/DANIEL BILAT IMPRESSION: Stable bilateral screening mammogram. Yearly follow-up mammogram recommended. (A) ASSESSMENT CATEGORY: BIRADS Category 2: Benign. A letter regarding these results will be sent to the patient by the facility within 30 days. Approximately 10% of breast cancers are not detected by mammography. A normal mammogram should not delay biopsy of a clinically suspicious abnormality. [id number] Electronically Signed: Gabe Mendez MD at 14:07 EST ,
== END | disposition home or self-care (01) ==
LOC: OPBI 16:02
PROVIDERS: PCP Family Medicine; Visit Provider Family Medicine
DX: Z12.31 Encounter for screening mammogram for malignant neoplasm of breast (principal)
CPT/HCPCS: 77063; 77067

== ENCOUNTER → 2023-11-26 | Outpatient (CLI) | payer BC, SELFPAY ==
--- NOTE | 2023-11-26 11:55 | EKG12_ITS ---
Test Reason : PRE OP Blood Pressure : / mmHG Vent. Rate : 070 BPM Atrial Rate : 070 BPM P-R Int : 112 ms QRS Dur : 078 ms QT Int : 392 ms P-R-T Axes : 015 059 038 degrees QTc Int : 423 ms Sinus rhythm with occasional Premature ventricular complexes Low voltage QRS Borderline ECG Confirmed by Ronny Hoover ([id number]), film or videotape editor ALCIRA CLARK ([id number]) on 11/30/2023 10:00:25 AM Referred By: Adwoa John Confirmed By:Ronny Hoover
[2023-11-26 12:27] LABS: Absolute Lymphocyte Count 1.86 X10^3/uL (0.83-4.51); Basophil# 0.07 X10^3/uL; Eosinophil# 0.37 X10^3/uL; Eosinophils% 5.3 % (0-5); Hematocrit 41.5 % (37-47); Hemoglobin 14.1 g/dL (12.0-15.0); Lymphocyte # 1.86 X10^3/ul (0.83-4.51); Lymphocyte % 26.8 % (19-41); Mean Corpuscular Hgb 30.5 pg (27.0-32.0); Mean Corpuscular Volume 89.6 fL (81-99); Mean Platelet Vol. 9.8 fl (6.2-12.0); Monocyte# 0.62 X10^3/uL; Monocyte% 8.9 % (0-10); NRBC Flagged by Analyzer 0 % (0-5); Neutrophil # 4.01 X10^3/uL (2.7-7.7); Neutrophil % 57.9 % (47-70); Platelet Count 330 K/mm3 (150-450); RBC Distribution Width CV 12.4 % (11.6-14.6); Red Blood Count 4.63 M/mm3 (4.2-5.4); White Blood Count 6.9 K/mm3 (4.4-11.0)
[2023-11-26 13:50] LABS: Hemoglobin A1c 5.3 % (3.8-5.6)
[2023-11-26 18:04] LABS: Vitamin D,25 Hydroxy 36.8 ng/mL
[2023-11-26 18:05] LABS: AST(SGOT) 19 U/L (15-37); Alanine Aminotransfer ALT/SGPT 26 U/L (13-56); Albumin, Serum 3.6 g/dL (3.2-5.0); Alkaline Phosphatase 69 U/L (45-117); Anion Gap 5 (5-15); BUN 17 mg/dL (7-18); BUN/Creat Ratio 19.4 RATIO (10-20); Chloride 107 mmol/L (98-107); Creatinine, Serum 0.88 mg/dL (0.55-1.02); EST Glomerular Filtration Rate 74 mL/min (>60); Est Glom Filt Rate - Afr Amer 89 mL/min (>60); Estradiol 32.3 pg/mL; Follicle Stimulating Hormone 32.4 mIU/mL; Globulin 3.7 g/dL (2.2-4.2); Glucose 93 mg/dL (74-106); Potassium 3.9 mmol/L (3.5-5.1); Protein, Total 7.3 g/dL (6.4-8.2); Sodium Level 138 mmol/L (136-145); Thyroid Stim Hormone (TSH) 0.92 uIU/mL (0.358-3.74)
== END | disposition home or self-care (01) ==
PROVIDERS: PCP Family Medicine; Referring Provider Obstetrics & Gynecology; Visit Provider Obstetrics & Gynecology
DX: Z13.29 Encounter for screening for other suspected endocrine disorder (principal); N95.1 Menopausal and female climacteric states; E66.3 Overweight; Z68.28 Body mass index [BMI] 28.0-28.9, adult; I10 Essential (primary) hypertension
CPT/HCPCS: 36415; 80053; 82306; 82670; 83001; 83036; 84443; 85025; 93005

== ENCOUNTER → 2024-06-06 | Outpatient (CLI) | payer BC, SELFPAY ==
--- NOTE | 2024-06-06 14:16 | BI_ITS ---
MAMMOGRAPHY - BILATERAL SCREENING 3-D TOMOSYNTHESIS REASON FOR EXAM: Female, 49 years old. screening mammogram PERTINENT HISTORY: No significant family history. TECHNIQUE: 2-D mammograms and 3-D Tomosynthesis of the breast (s) were performed. CAD was performed. COMPARISON: 06/02/2023 FINDINGS: The breast composition is composed of scattered fibroglandular density. Scattered benign calcifications are seen. No dense spiculated masses or suspicious microcalcifications are identified. No architectural distortion is identified. There is no skin thickening or retraction. There has been no significant change since the prior study. BI/SCRN MAMM (CAD)W/DANIEL BILAT IMPRESSION: No mammographic signs of malignancy. Routine yearly mammograms recommended. ASSESSMENT CATEGORY: BIRADS Category 1: Negative. A letter regarding these results will be sent to the patient by the facility within 30 days. FOLLOW UP RECOMMENDATION: Yearly follow up mammogram recommended. (A) Approximately 10% of breast cancers are not detected by mammography. A normal mammogram should not delay biopsy of a clinically suspicious abnormality. Electronically Signed: Seymour Sharma MD at 16:22 EST ,
== END | disposition home or self-care (01) ==
LOC: OPBI 14:16
PROVIDERS: PCP Family Medicine; Referring Provider Obstetrics & Gynecology; Visit Provider Obstetrics & Gynecology
DX: Z12.31 Encounter for screening mammogram for malignant neoplasm of breast (principal)
CPT/HCPCS: 77063; 77067

== ENCOUNTER → 2024-09-05 | Outpatient (CLI) | payer BC, SELFPAY | END | disposition home or self-care (01) | LOC: LABSPEC 09:45 | PROVIDERS: PCP Family Medicine; Visit Provider Family Medicine | DX: R30.0 Dysuria (principal); R82.90 Unspecified abnormal findings in urine | CPT/HCPCS: 87086; 87088 ==

== ENCOUNTER → 2025-03-03 | Outpatient (CLI) | payer BC, SELFPAY ==
--- NOTE | 2025-03-03 15:57 | US_ITS ---
PROCEDURE: EXT NON VASC LIMITED/SOFT tissue 03/03/2025 REASON FOR EXAM: BENIGN LIPOMATOUS NEOPLASM, UNSPECIFIED TECHNIQUE: EXT NON VASC LIMITED/SOFT tissue COMPARISON: None. FINDINGS: Isoechoic nonvascular lesion identified in the anterior left thigh. Lesion measures 1.3 cm x 2.3 cm x 0.6 cm. This is likely a lipoma. US/Ext Non Vasc Limited/Soft Tiss IMPRESSION: Lipoma at area of concern Reading Location: [facility]
== END | disposition home or self-care (01) ==
LOC: US 15:48
PROVIDERS: PCP Family Medicine; Referring Provider Family Medicine; Visit Provider Family Medicine
DX: D17.9 Benign lipomatous neoplasm, unspecified (principal)
CPT/HCPCS: 76882